=== PATIENT | male | born 1955 | race Caucasian/White ===

== ENCOUNTER 2017-01-11 10:24 | Inpatient (IN) | payer BC, OTHER ==
[~2017-01-11] VITALS: Ht 188 cm; Wt 97.6 kg
[2017-01-11 11:32] LABS: Basophils # (auto) 0.1 uL; Basophils % (auto) 1.1 % (0.0-2.0); CONDITION Y; Eosinophils # (auto) 0.4 uL; Hematocrit 46.3 % (41.0-53.0); Hemoglobin 15.9 g/dL (13.5-17.5); Lymphocytes % (auto) 28.6 % (10.0-50.0); Mean Corpuscular Hemoglobin 30.4 pg (28.0-32.0); Mean Corpuscular Hgb Conc. 34.4 g/dL (32.0-36.0); Mean Corpuscular Volume 88.5 fL (80.0-100.0); Mean Platelet Volume 7.7 fL (7.4-10.4); Monocytes # (auto) 0.5 uL; Monocytes % (auto) 7.6 % (0.0-12.0); Neutrophils # (auto) 3.9 uL; Neutrophils % (auto) 56.7 % (37.0-80.0); Platelet Count (auto) 221 10^3/uL (140-450); Red Cell Distribution Width 13.2 % (11.6-16.0)
[2017-01-11 11:49] LABS: Albumin 4.2 g/dL (3.4-5.0); Calcium 8.5 mg/dL (8.5-10.1); Magnesium 2.1 mg/dL (1.6-2.6); Potassium 4.4 mmol/L (3.5-5.1)
[2017-01-11 11:51] LABS: BUN/Creatinine Ratio 17.8
[2017-01-11 11:56] LABS: Bilirubin, Total 0.9 mg/dL (0.2-1.0); Total Protein 7.2 g/dL (6.4-8.2)
[2017-01-11] MEDS ORDERED: ASPirin 325 MG TAB PO ONE (12:30)
[2017-01-11] MEDS ORDERED: ENOXAPARIN SOD 100 MG/1 ML SYRINGE SC ONE (12:30)
[2017-01-11 13:12] LABS: INR 1.1 (0.9-1.15); Partial Thromboplastin Time 26.5 sec (22.64-33.71)
[2017-01-11 13:15] LABS: B-Type Natriuretic Peptide 46.55 pg/mL (0-100)
[2017-01-11 13:18] LABS: Temperature: 24.1 C (20.0-25.0)
[2017-01-11] MEDS ORDERED: ZOLPIDEM TARTRATE 5 MG TAB PO PRN (15:30)
[2017-01-11] MEDS ORDERED: MORPHINE SULF INJ 2 MG/ML SYRINGE 1ML IV PRN ×2 (15:30)
[2017-01-11] MEDS ORDERED: ONDANSETRON HCL 4 MG/2 ML VIAL IV PRN (15:30)
[2017-01-11] MEDS ORDERED: ACETAMINOPHEN 325 MG TAB PO PRN (15:30)
[2017-01-11] MEDS ORDERED: LORazepam 0.5 MG TAB PO PRN (15:30)
[2017-01-11] MEDS ORDERED: ALUM & MAG HYDROX-SIMETH LIQ(MAALOX) 30 ML PO ONE (15:30)
[2017-01-11] MEDS ORDERED: NITROGLYCERIN 0.4 MG SL TAB SL PRN ×2 (15:30)
[2017-01-11] MEDS ORDERED: CLOP75TA28 PO (17:25)
[2017-01-11] MEDS ORDERED: CAR3125T OR (17:25)
[2017-01-11] MEDS ORDERED: LISI2.5T47 PO (17:25)
[2017-01-11] MEDS ORDERED: ROSU5TAB5 PO (17:25)
[2017-01-11] MEDS ORDERED: HEPARIN DRIP/D5W 100UNITS/ML 250 ML IV SCH (20:09)
[2017-01-11] MEDS ORDERED: POTASSIUM CHL 10% (20 MEQ/15ML) ORAL SOLN PO ONE (20:15)
[2017-01-11] MEDS ORDERED: HEPARIN SODIUM (PORCINE) 5000 UNITS/ML 1ML VIAL IV ONE (20:15)
[2017-01-11] MEDS ORDERED: FUROSEMIDE 40 MG/4 ML VIAL IV ONE (20:15)
[2017-01-11 20:40] LABS: Basophils # (auto) 0.1 uL; CONDITION Y; Eosinophils # (auto) 0.3 uL; Eosinophils % (auto) 5.2 % (0.0-7.0); Hematocrit 44.1 % (41.0-53.0); Lymphocytes # (auto) 2.1 uL; Lymphocytes % (auto) 31.8 % (10.0-50.0); Mean Corpuscular Hemoglobin 29.8 pg (28.0-32.0); Mean Corpuscular Volume 87.5 fL (80.0-100.0); Mean Platelet Volume 7.3 fL (7.4-10.4); Monocytes # (auto) 0.5 uL; Monocytes % (auto) 7.5 % (0.0-12.0); Neutrophils # (auto) 3.6 uL; Neutrophils % (auto) 54.5 % (37.0-80.0); Platelet Count (auto) 202 10^3/uL (140-450); Red Cell Distribution Width 13.1 % (11.6-16.0); White Blood Cell 6.7 10^3/uL (4.4-10.8)
[2017-01-11 21:06] LABS: INR 1.14 (0.9-1.15); Partial Thromboplastin Time 30.1 sec (22.64-33.71)
[2017-01-11 21:09] LABS: Prothrombin Time 12.4 sec (9.37-12.3)
[2017-01-11 22:00] VITALS: BP 127/81
[2017-01-11] MEDS: ATORVASTATIN 20 MG TAB PO SCH (22:38)
[2017-01-11] MEDS: CARVEDILOL 12.5 MG TAB PO SCH (22:39)
[2017-01-11] MEDS: SODIUM CHLOR 0.9% PF (SALINE LOCK) 10ML VIAL IV SCH (22:39)
[2017-01-12 03:22] LABS: Basophils # (auto) 0 uL; Basophils % (auto) 0.5 % (0.0-2.0); CONDITION Y; Eosinophils # (auto) 0.4 uL; Eosinophils % (auto) 4.8 % (0.0-7.0); Lymphocytes # (auto) 2.2 uL; Lymphocytes % (auto) 28.2 % (10.0-50.0); Mean Corpuscular Hemoglobin 30.1 pg (28.0-32.0); Mean Corpuscular Hgb Conc. 33.9 g/dL (32.0-36.0); Mean Corpuscular Volume 88.7 fL (80.0-100.0); Mean Platelet Volume 7.2 fL (7.4-10.4); Monocytes # (auto) 0.8 uL; Monocytes % (auto) 9.8 % (0.0-12.0); Neutrophils # (auto) 4.5 uL; Neutrophils % (auto) 56.7 % (37.0-80.0); Platelet Count (auto) 220 10^3/uL (140-450); Red Cell Distribution Width 13.2 % (11.6-16.0); White Blood Cell 7.9 10^3/uL (4.4-10.8)
[2017-01-12 03:36] LABS: INR 1.12 (0.9-1.15); Partial Thromboplastin Time 27.7 sec (22.64-33.71); Prothrombin Time 12.2 sec (9.37-12.3)
[2017-01-12 03:50] LABS: BUN/Creatinine Ratio 19.3; Bilirubin, Total 0.9 mg/dL (0.2-1.0); Calcium 8.7 mg/dL (8.5-10.1); Magnesium 2.3 mg/dL (1.6-2.6); Potassium 4.1 mmol/L (3.5-5.1); Total Protein 6.9 g/dL (6.4-8.2)
[2017-01-12 05:00] VITALS: BP 132/85
[2017-01-12] MEDS: SODIUM CHLOR 0.9% PF (SALINE LOCK) 10ML VIAL IV SCH ×3 (06:12→21:46)
[2017-01-12] MEDS ORDERED: HEPARIN SODIUM (PORCINE) 5000 UNITS/ML 1ML VIAL IV ONE (06:15)
[2017-01-12] MEDS ORDERED: HEPARIN DRIP/D5W 100UNITS/ML 250 ML IV SCH (06:15)
[2017-01-12 07:30] VITALS: BP 129/60
[2017-01-12 09:00] VITALS: BP 129/60
[2017-01-12] MEDS: CHOLECALCIFEROL (VITD3) 1,000 UNIT TAB PO SCH (09:51)
[2017-01-12] MEDS: CARVEDILOL 12.5 MG TAB PO SCH ×2 (09:52→21:46)
[2017-01-12] MEDS: LISINOPRIL 10 MG TAB PO SCH (09:52)
[2017-01-12] MEDS: CO-Q 10 PO SCH (10:00)
[2017-01-12] MEDS: FISH OIL PO SCH (10:00)
[2017-01-12] MEDS: ASPirin 81 mg TAB PO SCH (10:00)
[2017-01-12] MEDS: DOCUSATE SOD 100 MG CAP PO SCH (10:00)
[2017-01-12] MEDS: CLOPIDOGREL BISULFATE 75 MG TAB PO SCH (10:00)
[2017-01-12] MEDS ORDERED: IODIXANOL 320MG/ML 100ML BTL IV ONE ×2 (10:02→11:27)
[2017-01-12] MEDS ORDERED: LIDOCAINE 2%HCL (LOCAL ANESTH.) INJ 20ML MDV ONE ×3 (10:04→12:21)
[2017-01-12] MEDS ORDERED: HEPARIN IN NS 1000Units/500mL 1,500 ML ONE (10:04)
[2017-01-12] MEDS ORDERED: ANGIOMAX 250 MG VIAL IV ONE (11:13)
[2017-01-12] MEDS ORDERED: SODIUM CHL 0.9% 0 ML ONE (11:14)
[2017-01-12] MEDS ORDERED: EPTIFIBATIDE INJ (2MG/ML) 10ML VIAL IV ONE (11:14)
[2017-01-12] MEDS ORDERED: fentaNYL CITRATE 100 MCG/2 ML VL ONE (11:14)
[2017-01-12] MEDS ORDERED: MIDAZOLAM HCL 1MG/1ML-2 ML VIAL ONE (11:14)
[2017-01-12] MEDS ORDERED: HYDROmorphone HCL 2 MG/ML VL ONE (11:57)
[2017-01-12] MEDS ORDERED: ONDANSETRON HCL 4 MG/2 ML VIAL ONE (11:58)
[2017-01-12 17:00] VITALS: BP 132/81
[2017-01-12] MEDS ORDERED: OXYCODONE W/ ACETAMINOPHEN 5/325MG TABLET PO PRN (18:30)
[2017-01-12] MEDS: ATORVASTATIN 20 MG TAB PO SCH (21:46)
[2017-01-12 22:00] VITALS: BP 117/78
[2017-01-13 05:00] VITALS: BP 119/77
[2017-01-13 07:30] VITALS: BP 117/78
[2017-01-13] MEDS: SODIUM CHLOR 0.9% PF (SALINE LOCK) 10ML VIAL IV SCH ×2 (07:34→14:18)
[2017-01-13 08:30] VITALS: BP 113/65
[2017-01-13] MEDS: ASPirin 81 mg TAB PO SCH (09:26)
[2017-01-13] MEDS: DOCUSATE SOD 100 MG CAP PO SCH (09:26)
[2017-01-13] MEDS: CLOPIDOGREL BISULFATE 75 MG TAB PO SCH (09:26)
[2017-01-13] MEDS: CARVEDILOL 12.5 MG TAB PO SCH (09:27)
[2017-01-13] MEDS: CHOLECALCIFEROL (VITD3) 1,000 UNIT TAB PO SCH (09:27)
[2017-01-13] MEDS: LISINOPRIL 10 MG TAB PO SCH (09:28)
[2017-01-13] MEDS: FISH OIL PO SCH (10:00)
[2017-01-13] MEDS: CO-Q 10 PO SCH (10:00)
[2017-01-13 12:54] VITALS: BP 117/73
[2017-01-13 13:52] VITALS: BP 117/73
== END 2017-01-13 18:13 | disposition home or self-care (01) | DRG 281 ==
LOC: ER 10:24 → TELE 10:25 → TELE-E-ADS 16:25 → TELE-CENTR 19:02
PROVIDERS: ADMIT Internal Medicine; ATTEND Internal Medicine Geriatric Medicine
PROC: 4A023N7 Measurement of Cardiac Sampling and Pressure, Left Heart, Percutaneous Approach (ICD-10-PCS; principal; 2017-01-12)
PROC: B2111ZZ Fluoroscopy of Multiple Coronary Arteries using Low Osmolar Contrast (ICD-10-PCS; 2017-01-12)
PROC: B2151ZZ Fluoroscopy of Left Heart using Low Osmolar Contrast (ICD-10-PCS; 2017-01-12)
PROC: B41F1ZZ Fluoroscopy of Right Lower Extremity Arteries using Low Osmolar Contrast (ICD-10-PCS; 2017-01-12)
DX: I21.4 Non-ST elevation (NSTEMI) myocardial infarction (principal); I13.0 Hypertensive heart and chronic kidney disease with heart failure and stage 1 through stage 4 chronic kidney disease, or unspecified chronic kidney disease; I25.10 Atherosclerotic heart disease of native coronary artery without angina pectoris; I50.9 Heart failure, unspecified; E78.5 Hyperlipidemia, unspecified; N18.2 Chronic kidney disease, stage 2 (mild); Z95.5 Presence of coronary angioplasty implant and graft; I25.2 Old myocardial infarction; Z88.8 Allergy status to other drugs, medicaments and biological substances; Z82.49 Family history of ischemic heart disease and other diseases of the circulatory system
CPT/HCPCS: 36415; 71010; 80053; 80061; 83735; 83880; 84484; 85025; 85610; 85730; 93005; 93306; 93458; 96372; 99152; J2250; J2405; Q9967